=== PATIENT | female | born 1955 | race Caucasian/White ===

== ENCOUNTER 2024-03-30 20:58 | Emergency (ER) | payer MEDICARE, SELFPAY ==
[2024-03-30 21:00] VITALS: BMI 30.7
--- NOTE | 2024-03-30 21:02 | XRR_ITS ---
PROCEDURE INFORMATION: Exam: XR Left Wrist Exam date and time: 03/30/2024 9:49 PM Age: 69 years old Clinical indication: Injury or trauma; Fall; Other: Pain lt wrist; Additional info: Fall, wrist pain TECHNIQUE: Imaging protocol: Radiologic exam of the left wrist. Views: 3 or more views. COMPARISON: No relevant prior studies available. FINDINGS: Bones/joints: There is a transverse dorsally impacted fracture of the distal radial epiphysis. An ulnar styloid avulsion fracture is also seen. Soft tissues: Normal. XR/XR wrist LT min 3V* [id number] IMPRESSION: Fracture distal radius and ulna.
--- NOTE | 2024-03-30 21:03 | CTR_ITS ---
PROCEDURE INFORMATION: Exam: CT Head Without Contrast Exam date and time: 03/30/2024 9:17 PM Age: 69 years old Clinical indication: Injury or trauma; Fall; Blunt trauma (contusions or hematomas); Additional info: Fall, head injury TECHNIQUE: Imaging protocol: Computed tomography of the head without contrast. Radiation optimization: All CT scans at this facility use at least one of these dose optimization techniques: automated exposure control; mA and/or kV adjustment per patient size (includes targeted exams where dose is matched to clinical indication); or iterative reconstruction. COMPARISON: No relevant prior studies available. RADIATION DOSE METRICS: Total DLP (mGy-cm): 952 FINDINGS: Brain: There are small lacunar infarcts at the basal ganglia as well as mild periventricular white matter small vessel disease. There is no evidence of acute segmental infarct. No evidence of hemorrhage or mass effect. Cerebral ventricles: No ventriculomegaly. Paranasal sinuses: Visualized sinuses are unremarkable. No fluid levels. Mastoid air cells: Visualized mastoid air cells are well aerated. Bones: Unremarkable. No acute fracture. Soft tissues: There is scalp soft tissue swelling over the right frontotemporal region. CT/CT head wo con* [id number] IMPRESSION: Right posterior frontotemporal scalp soft tissue swelling without fracture or intracranial hemorrhage.
--- NOTE | 2024-03-30 21:03 | ED_ITS ---
Documented by User: Faith Manzano MD 03/30/24 23:08 HPI - Fall General: Chief Complaint: Fall Stated Complaint: Fall Time Seen by Provider: 03/30/24 21:00 History of Present Illness: 69-year-old woman with history of chroni c pain syndrome on tramadol who presents the emergency room after having had a fall. Is having left wrist pain. She is having pain in her right knee from the laceration. Is an apparent deformity of her left wrist. She had her head and has bumps on her head. No loss of consciousness. No altered mental status. No nausea or vomiting. She is not on any anticoagulation. Review of Systems Narrative: Constitutional symptoms: Negative except as documented in HPI. Skin symptoms: Negative except as documented in HPI. Eye symptoms: Negative except as documented in HPI. ENMT symptoms: Negative except as documented in HPI. Respiratory symptoms: Negative except as documented in HPI. Cardiovascular symptoms: Negative except as documented in HPI. Gastrointestinal symptoms: Negative except as documented in HPI. Genitourinary symptoms: Negative except as documented in HPI. Musculoskeletal symptoms: Negative except as documented in HPI. Neurologic symptoms: Negative except as documented in HPI. Psychiatric symptoms: Negative except as documented in HPI. Endocrine symptoms: Negative except as documented in HPI. Physical Exam Narrative: EXAM NARRATIVE: General: Alert, no acute distress. Skin: Warm, dry. Lacerations to the right knee. Head: Normocephalic, some bruising to her head.. Neck: Supple, trachea midline. Eye: Extraocular movements are intact. Ears, nose, mouth and throat: mucosa moist. Cardiovascular: Regular, Normal peripheral perfusion. Respiratory: Lungs are clear to auscultation, respirations are non-labored, breath sounds are equal, Symmetrical chest wall expansion. Gastrointestinal: Soft, Nontender, Non distended, Normal bowel sounds. Musculoskeletal: Normal ROM, deformity of the left wrist. This is not open. She is neurovascularly intact. Neurological: Alert and oriented, No focal neurological deficit observed. Psychiatric: Cooperative, appropriate mood & affect. Course Vital Signs: Vital signs: Vital Signs Pulse Rate 77 03/30/24 21:29 Respiratory Rate 18 03/30/24 21:29 Blood Pressure 164/96 03/30/24 21:29 Pulse Oximetry 98 03/30/24 21:29 MDM - Fall Medical Decision Making CT head: No acute intracranial process. no intracranial hemorrhage, no evidence of infarct. no evidence of acute fracture.This was reviewed and interpreted by myself the ER physician. X-ray of the left wrist: Distal radial fracture with slight impaction. This was reviewed and interpreted by myself emergency room physician. Consultation: I spoke with Dr. Broussard who is on-call for orthopedics. He recommends a volar splint and follow-up in clinic. Reexamination: Patient remained stable. Splint was placed by nursing I examined personally. Neurovascularly intact. Laceration has been repaired. No altered mental status. No focal motor deficits. No increased work of breathing. 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 - Discharged home - Discussed plan with patient. Answered any questions. - Evaluation and treatment of this problem were appropriate in the emergency setting. Lab Data Radiology Impressions Wrist X-Ray 03/30/24 21:02 IMPRESSION: Fracture distal radius and ulna. Head CT 03/30/24 21:03 IMPRESSION: Right posterior frontotemporal scalp soft tissue swelling without fracture or intracranial hemorrhage. XR interpretation done by ED provider, pending radiology final review Discharge Plan Discharge Patient Disposition: Home Clinical Impression: Fracture of wrist Qualifiers: Encounter type: initial encounter Fracture type: closed Laterality: left Qualified Code(s): S62.102A - Fracture of unspecified carpal bone, left wrist, initial encounter for closed fracture Leg laceration Qualifiers: Encounter type: initial encounter Laterality: right Qualified Code(s): S81.811A - Laceration without foreign body, right lower leg, initial encounter Head injury Qualifiers: Encounter type: initial encounter Qualified Code(s): S09.90XA - Unspecified injury of head, initial encounter Condition: Stable Prescriptions: New hydrocodone-acetaminophen 5-325 mg tablet 1 tab PO Q6H PRN (Reason: pain) Qty: 20 0RF Miralax 17 gram/dose powder 17 g PO DAILY Qty: 510 0RF Rx Instructions: Take 1 scoop daily while taking pain medications. Discharge Orders: Discharge ED (Routine); Ordered 03/30/24 Ordered By: Faith Manzano Referrals: Ronnell Broussard DO [Physician] - 4-7 days (Call for an appointment) Discharge Diet: Advance as tolerated Discharge Activity: Limit activity as instructed Patient Instructions: Opioid Safety, Pain Management Activity Restrictions/Additional Instructions: Thank you for choosing [facility] for your healthcare needs today. Please realize this is an emergency room and that we are providing you with a medical screening exam and this may not be complete and all inclusive of all the testing and or work up that you may need to determine your ailment or severity of your illness. You have been screened and evaluated and felt safe for discharge. Health conditions do change or evolve sometimes and as such it is important that you follow up with your Primary Doctor to be re checked, 3-5 days is a general good time frame for follow up. 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 [employer] Documented by User: JESSIE Weiss 03/30/24 23:39 HPI - Fall General: Chief Complaint: Fall Stated Complaint: Fall Time Seen by Provider: 03/30/24 21:00 Procedures Laceration Laceration 1: Site: lower extremity Side (If applicable): right Size (cm): 2.5 Depth: simple, single layer Local Anesthetic: lidocaine 1% and with epi Amount of anesthesia used (mL): 4 Pre-repair: wound explored and irrigated extensively Skin layer closed with: nylon Size (cm): 3-0 Number of sutures: 3 Technique: simple, interrupted (2), horizontal mattress (1) and other (Wound close by Renny Butler NP, patient tolerated well.) Course Vital Signs: Vital signs: Vital Signs Pulse Rate 77 03/30/24 21:29 Respiratory Rate 18 03/30/24 21:29 Blood Pressure 164/96 03/30/24 21:29 Pulse Oximetry 98 03/30/24 21:29 MDM - Fall Lab Data Radiology Impressions Wrist X-Ray 03/30/24 21:02 IMPRESSION: Fracture distal radius and ulna. Head CT 03/30/24 21:03 IMPRESSION: Right posterior frontotemporal scalp soft tissue swelling without fracture or intracranial hemorrhage. Discharge Plan Discharge Patient Disposition: Home Clinical Impression: Fracture of wrist Qualifiers: Encounter type: initial encounter Fracture type: closed Laterality: left Qualified Code(s): S62.102A - Fracture of unspecified carpal bone, left wrist, initial encounter for closed fracture Leg laceration Qualifiers: Encounter type: initial encounter Laterality: right Qualified Code(s): S81.811A - Laceration without foreign body, right lower leg, initial encounter Head injury Qualifiers: Encounter type: initial encounter Qualified Code(s): S09.90XA - Unspecified injury of head, initial encounter Condition: Stable Prescriptions: New hydrocodone-acetaminophen 5-325 mg tablet 1 tab PO Q6H PRN (Reason: pain) Qty: 20 0RF Miralax 17 gram/dose powder 17 g PO DAILY Qty: 510 0RF Rx Instructions: Take 1 scoop daily while taking pain medications. Discharge Orders: Discharge ED (Routine); Ordered 03/30/24 Ordered By: Faith Manzano Referrals: Ronnell Broussard DO [Physician] - 4-7 days (Call for an appointment) Discharge Diet: Advance as tolerated Discharge Activity: Limit activity as instructed Patient Instructions: Opioid Safety, Pain Management Activity Restrictions/Additional Instructions: Thank you for choosing [facility] for your healthcare needs today. Please realize this is an emergency room and that we are providing you with a medical screening exam and this may not be complete and all inclusive of all the testing and or work up that you may need to determine your ailment or severity of your illness. You have been screened and evaluated and felt safe for discharge. Health conditions do change or evolve sometimes and as such it is important that you follow up with your Primary Doctor to be re checked, 3-5 days is a general good time frame for follow up. 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
[2024-03-30 21:29] VITALS: BP 164/96; PULSE 77; RESP 18; O2SAT 98
[2024-03-30] MEDS: HYDROcodone-acetaminophen 10-325 mg Tablet 1 TAB PO (22:37)
[2024-03-30] MEDS: diphenhydrAMINE 50 mg/mL SDV 1mL 25 MG IVP (23:56)
== END 2024-03-30 23:57 | disposition home or self-care (01) ==
PROVIDERS: Emergency Provider Emergency Medicine
DX: S52.502A Unspecified fracture of the lower end of left radius, initial encounter for closed fracture (principal); S52.602A Unspecified fracture of lower end of left ulna, initial encounter for closed fracture; S81.011A Laceration without foreign body, right knee, initial encounter; S00.93XA Contusion of unspecified part of head, initial encounter; W19.XXXA Unspecified fall, initial encounter
CPT/HCPCS: 12001; 70450; 73110; 96374; 99284; J1200